=== PATIENT | female | born 1930 | race African-American/Black ===

== ENCOUNTER 2019-10-16 12:07 | Emergency (ER) | payer MEDICARE ==
[~2019-10-16] VITALS: Ht 160 cm; Wt 117.9 kg
[~2019-10-16 12:07] MED LIST: ASPIRIN81 MG ORAL; ATORVASTATIN CA20 MG ORAL; CARVEDILOL12.5 MG ORAL; SPIRONOLACTONE100 MG ORAL; SYNTHROID112 MCG ORAL
[2019-10-16 12:16] VITALS: BP 150/90
--- NOTE | 2019-10-16 12:16 | NUR ---
ED Nurse Note: PT ARRIVED WITH [facility] FROM SNF D/T ABNORMAL LABS; LOW H&H. HGB 7.2 AND HCT 256.
[2019-10-16] MEDS ORDERED: IBUPROFEN200 M2 ORAL (12:21)
[2019-10-16] MEDS ORDERED: ACETAMINOPHEN325 M1 ORAL (12:21)
[2019-10-16] MEDS ORDERED: SENNA8.6 M2 PO (12:21)
[2019-10-16] MEDS ORDERED: PENTOXIFYLLINE400 MG ORAL (12:21)
--- NOTE | 2019-10-16 12:27 | NUR ---
ED Nurse Note: IV SITE ESTABLISHED, BLOOD DRAWN, BLOOD SPECIMEN SENT TO LAB
[2019-10-16 12:53] LABS: BASOPHILS % (AUTO) 1.1 % (0.0-2.0); EOSINOPHILS % (AUTO) 3.8 % (0.0-3.0); HEMATOCRIT 27.1 % (37.0-47.0); HEMOGLOBIN 8.6 G/DL (12.0-16.0); LYMPHOCYTES % (AUTO) 16.6 % (20.0-45.0); MEAN CORPUSCULAR VOLUME 85 FL (80-99); MONOCYTES % (AUTO) 10.2 % (1.0-10.0); NEUTROPHILS % (AUTO) 68.3 % (45.0-75.0); PLATELET COUNT 282 K/UL (150-450); RED BLOOD COUNT 3.18 M/UL (4.20-5.40); WHITE BLOOD COUNT 5.6 K/UL (4.8-10.8)
[2019-10-16 12:58] LABS: ANION GAP 3 mmol/L (5-15); BLOOD UREA NITROGEN 9 mg/dL (7-18); CALCIUM 8.6 MG/DL (8.5-10.1); CARBON DIOXIDE 34 MMOL/L (21-32); CHLORIDE 105 MMOL/L (98-107); CREATININE 1.1 MG/DL (0.55-1.30); POTASSIUM 4.3 MMOL/L (3.5-5.1); SODIUM 142 MMOL/L (136-145)
--- NOTE | 2019-10-16 13:01 | NUR ---
ED Nurse Note: DR. MARCOS AT BEDSIDE
--- NOTE | 2019-10-16 13:02 | NUR ---
ED Nurse Note: XRAY AT BEDSIDE
[2019-10-16 13:13] LABS: ALANINE AMINOTRANSFERASE 15 U/L (12-78); ALBUMIN 1.9 G/DL (3.4-5.0); ALBUMIN/GLOBULIN RATIO 0.4 (1.0-2.7); ALKALINE PHOSPHATASE 78 U/L (46-116); ASPARTATE AMINO TRANSFERASE 15 U/L (15-37); BILIRUBIN,TOTAL 0.5 MG/DL (0.2-1.0); CREATINE KINASE 33 U/L (26-308)
--- NOTE | 2019-10-16 13:24 | NUR ---
ED Nurse Note: SPOKE WITH SALMA FROM [facility] TO INFORM RESIDENT WILL BE RETURNING
--- NOTE | 2019-10-16 13:36 | Emergency Room Report ---
History of Present Illness General Chief Complaint: Abnormal Labs Source: Patient, EMS Present Illness HPI Patient presents with concerns of new findings of anemia Patient has had recent surgery mid abdominal hernia surgery Had mild dehiscence of the wound and has been getting followed up as outpatient at the nursing facility however recent blood work reveals blood count at 7 and patient was sent to the emergency room for eval Allergies: Coded Allergies: MAXIMO INHIBITORS (Verified Allergy, Severe, swelling, 09/16/19) PEANUT (Verified Allergy, Unknown, 09/16/19) Patient History Past Medical History: see triage record Reviewed Nursing Documentation: PMH: Agreed; PSxH: Agreed Nursing Documentation-PMH Hx Hypertension: Yes Hx Diabetes: Yes - TYPE 2 Review of Systems All Other Systems: negative except mentioned in HPI Physical Exam Vital Signs Date Time Temp Pulse Resp B/P (MAP) Pulse Ox O2 Delivery O2 Flow Rate FiO2 10/16/19 12:09 98.2 80 19 150/90 (110) 92 Room Air Sp02 EP Interpretation: reviewed, normal General Appearance: well appearing, no apparent distress Head: normocephalic, atraumatic Eyes: bilateral eye PERRL, bilateral eye EOMI ENT: EOM grossly intact Neck: supple, thyroid normal Respiratory: lungs clear, normal breath sounds Cardiovascular #1: regular rate, rhythm Gastrointestinal: non tender, soft, other - Mid lower abdominal wound dehiscence, mild clear discharge Musculoskeletal: other - Moves both upper extremities without focal deficit Neurologic: alert, oriented x3 Psychiatric: normal inspection Skin: other - As above Lymphatic: no adenopathy Medical Decision Making Diagnostic Impression: Primary Impression: Wound dehiscence ER Course Given the history and exam and the presentation multiple differentials and consideration patient had extensive blood work and imaging initiated Hemoglobin count at this time is improved Fairly similar to her discharge hemoglobin of 9.0 Patient was seen by Dr. Cool in the emergency room The wound is investigated and feels that it is similar in improving from previous Given the finding and the patient's hemoglobin that is appropriate patient was transferred back to nursing facility for close follow-up Labs Test 10/16/19 12:05 White Blood Count 5.6 K/UL (4.8-10.8) Red Blood Count 3.18 M/UL (4.20-5.40) Hemoglobin 8.6 G/DL (12.0-16.0) Hematocrit 27.1 % (37.0-47.0) Mean Corpuscular Volume 85 FL (80-99) Mean Corpuscular Hemoglobin 26.9 PG (27.0-31.0) Mean Corpuscular Hemoglobin Concent 31.6 G/DL (32.0-36.0) Red Cell Distribution Width 14.0 % (11.6-14.8) Platelet Count 282 K/UL (150-450) Mean Platelet Volume 6.1 FL (6.5-10.1) Neutrophils (%) (Auto) 68.3 % (45.0-75.0) Lymphocytes (%) (Auto) 16.6 % (20.0-45.0) Monocytes (%) (Auto) 10.2 % (1.0-10.0) Eosinophils (%) (Auto) 3.8 % (0.0-3.0) Basophils (%) (Auto) 1.1 % (0.0-2.0) Prothrombin Time 10.6 SEC (9.30-11.50) Prothromb Time International Ratio 1.0 (0.9-1.1) Activated Partial Thromboplast Time 27 SEC (23-33) Sodium Level 142 MMOL/L (136-145) Potassium Level 4.3 MMOL/L (3.5-5.1) Chloride Level 105 MMOL/L (98-107) Carbon Dioxide Level 34 MMOL/L (21-32) Anion Gap 3 mmol/L (5-15) Blood Urea Nitrogen 9 mg/dL (7-18) Creatinine 1.1 MG/DL (0.55-1.30) Estimat Glomerular Filtration Rate mL/min (>60) Glucose Level 113 MG/DL (74-106) Calcium Level 8.6 MG/DL (8.5-10.1) Total Bilirubin 0.5 MG/DL (0.2-1.0) Aspartate Amino Transf (AST/SGOT) 15 U/L (15-37) Alanine Aminotransferase (ALT/SGPT) 15 U/L (12-78) Alkaline Phosphatase 78 U/L (46-116) Total Creatine Kinase 33 U/L (26-308) Troponin I 0.007 ng/mL (0.000-0.056) Pro-B-Type Natriuretic Peptide 901 pg/mL (0-125) Total Protein 6.7 G/DL (6.4-8.2) Albumin 1.9 G/DL (3.4-5.0) Globulin 4.8 g/dL Albumin/Globulin Ratio 0.4 (1.0-2.7) Rhythm Strip Diag. Results EP Interpretation: yes Rate: 77 Rhythm: NSR, no PVC's, no ectopy Chest X-Ray Diagnostic Results Chest X-Ray Diagnostic Results : Chest X-Ray Ordered: Yes # of Views/Limited/Complete: 1 View Indication: Chest Pain EP Interpretation: Yes Interpretation: no consolidation, no effusion, no pneumothorax, other - mild Congestion Impression: No acute disease Electronically Signed by: Rufus Kwon DO Last Vital Signs Date Time Temp Pulse Resp B/P (MAP) Pulse Ox O2 Delivery O2 Flow Rate FiO2 10/16/19 12:16 98.2 19 150/90 92 Room Air 10/16/19 12:09 80 Status: improved Disposition: XFER SNF Condition: Improved Referrals: Rufus Junior MD (PCP) Additional Instructions: Patient is provided with the discharge instructions notified to follow up with primary doctor in the next 2-3 days otherwise return to the er with any worsening symptoms. Please note that this report is being documented using [employer] technology. This can lead to erroneous entry secondary to incorrect interpretation by the dictating instrument. Rufus Kwon DO Oct 16, 2019 13:36
--- NOTE | 2019-10-16 14:14 | Diagnostic Imaging Report ---
Indication: Chest pain Technique: One view of the chest Comparison: , 17/02/2019 Findings: Inspiration is suboptimal. There is some atelectasis at the left lung base. Lungs and pleural spaces are otherwise clear. The heart is mildly enlarged. Impression: Mild cardiomegaly Left basilar atelectasis Otherwise clear lungs
[2019-10-16 14:19] VITALS: BP 130/89
--- NOTE | 2019-10-16 14:29 | NUR ---
ED Nurse Note: [facility] at bedside. pt vss. all belongings taken .
[2019-10-16 14:30] VITALS: BP 132/108
== END 2019-10-16 14:26 ==
LOC: EDUNIT# 12:07 → EDBD 12:07 → EMR 12:42 → CANBEDREQ 13:27 → EMR 14:26
DX: T81.30XA Disruption of wound, unspecified, initial encounter (principal); E11.9 Type 2 diabetes mellitus without complications; I10 Essential (primary) hypertension; Z91.010 Allergy to peanuts; Z91.09 Other allergy status, other than to drugs and biological substances
CPT/HCPCS: 36415; 71045; 80053; 82550; 83880; 84484; 85025; 85610; 85730; 93005; 99283